=== PATIENT | male | born 1970 | race Caucasian/White ===

== ENCOUNTER 2019-12-18 07:33 | Emergency (ER) | payer SELFPAY ==
--- NOTE | 2019-12-18 08:07 | EDM.PDOC ---
ED HPI GENERAL MEDICAL PROBLEM - General Chief Complaint: Skin Complaint Stated Complaint: RASH Time Seen by Provider: 12/18/19 07:42 - History of Present Illness INITIAL COMMENTS - FREE TEXT/NARRATIVE: History of present illness: [Presents with a rash the rash is itchy it began on the trunk and spread to the extremities been going on for 2 weeks he took a course of prednisone this helped and almost completely limited the rash but then when it was over it reoccurred. He had done a primary care visit via telehealth for that prescription. Patient has attempted to change his laundry soap and avoid certain things but he is not sure what is causing the rash. No insect bites no fever no chills it is itchy and seems to be affiliated with some of the clothing he is wearing. 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 Call problems no allergies taking any other medications except those steroids and gabapentin prescribed by the telehealth doctor.] Review of systems: As per history of present illness and below otherwise all systems reviewed and negative. Past medical history: As per history of present illness and as reviewed below otherwise noncontributory. Surgical history: As per history of present illness and as reviewed below otherwise noncontributory. Social history: No reported history of drug or alcohol abuse. Family history: As per history of present illness and as reviewed below otherwise noncontributory. Physical exam: HEENT: Atraumatic, normocephalic, pupils reactive, negative for conjunctival pallor or scleral icterus, mucous membranes moist, throat clear, neck supple, nontender, trachea midline. Lungs: Clear to auscultation, breath sounds equal bilaterally, chest nontender. Heart: S1S2, regular, negative for clicks, rubs, or JVD. Abdomen: Soft, nondistended, nontender. Negative for masses or hepatosplenomegaly. Negative for costovertebral tenderness. Pelvis: Stable nontender. Genitourinary: Deferred. Rectal: Deferred. Extremities: Atraumatic, negative for cords or calf pain. Neurovascular unremarkable. Neuro: Awake, alert, oriented. Cranial nerves II through XII unremarkable. Cerebellum unremarkable. Motor and sensory unremarkable throughout. Exam nonfocal. Skin: There is a patchy maculopapular rash with excoriations on the extremities that is most confluent on the trunk and upper extremities no signs of infection it is blanchable it appears to be a contact dermatitis there is no evidence of scabies or petechia Diagnostics: [] Therapeutics: [] Impression: Contact dermatitis Plan: I will place the patient on a steroid taper and write him Vistaril for itching he is encouraged to follow-up with dermatology and primary care when he gets home [] Definitive disposition and diagnosis as appropriate pending reevaluation and review of above. rash Pain Score (Numeric/FACES): 3 - Related Data Allergies Allergy/AdvReac Type Severity Reaction Status Date / Time No Known Allergies Allergy Verified 12/18/19 07:46 Home Meds: Home Meds hydrOXYzine pamoate [Vistaril] 50 mg PO Q6H 10 Days #30 cap 12/18/19 [Rx] predniSONE [Prednisone] 10 mg PO DAILY 8 Days #26 tablet 12/18/19 [Rx] Past Medical History - Past Health History Medical/Surgical History: Denies Medical/Surgical History - Infectious Disease History Infectious Disease History: Reports: Chicken Pox, Mumps Social & Family History - Family History Family Medical History: Noncontributory - Tobacco Use Smoking Status *Q: Current Every Day Smoker Years of Tobacco use: 30 Packs/Tins Daily: 0.5 - Recreational Drug Use Recreational Drug Use: No ED ROS GENERAL - Review of Systems Review Of Systems: See Below ED EXAM, SKIN/RASH Exam: See Below Course - Vital Signs Last Recorded V/S: Last Vital Signs Temp 36.4 C 12/18/19 07:46 Pulse 78 12/18/19 07:46 Resp 18 12/18/19 07:46 BP 140/71 12/18/19 07:46 Pulse Ox 97 12/18/19 07:46 Departure - Departure Time of Disposition: 08:01 Disposition: Home, Self-Care 01 Condition: Good Clinical Impression: Contact dermatitis Qualifiers: Contact dermatitis type: unspecified - Discharge Information *PRESCRIPTION DRUG MONITORING PROGRAM REVIEWED*: Not Applicable *COPY OF PRESCRIPTION DRUG MONITORING REPORT IN PATIENT THERESA: Not Applicable Instructions: Rash, Adult Referrals: PCP,None [Primary Care Provider] - Additional Instructions: [place] [facility] - Primary Care [address] [place] [address] [id number] [address] [id number] The following information is given to patients seen in the emergency department who are being discharged to home. This information is to outline your options for follow-up care. We provide all patients seen in our emergency department with a follow-up referral. The need for follow-up, as well as the timing and circumstances, are variable depending upon the specifics of your emergency department visit. If you don't have a primary care physician on staff, we will provide you with a referral. We always advise you to contact your personal physician following an emergency department visit to inform them of the circumstance of the visit and for follow-up with them and/or the need for any referrals to a consulting specialist. The emergency department will also refer you to a specialist when appropriate. This referral assures that you have the opportunity for follow-up care with a specialist. All of these measure are taken in an effort to provide you with optimal care, which includes your follow-up. Under all circumstances we always encourage you to contact your private physician who remains a resource for coordinating your care. When calling for follow-up care, please make the office aware that this follow-up is from your recent emergency room visit. If for any reason you are refused follow-up, please contact the [facility] Emergency Department at and asked to speak to the emergency department charge nurse. Sepsis Event Note - Evaluation Sepsis Screening Result: No Definite Risk - Focused Exam Vital Signs: Vital Signs Temp Pulse Resp BP Pulse Ox 12/18/19 07:46 36.4 C 78 18 140/71 97 Date Exam was Performed: 12/18/19 Time Exam was Performed: 07:58
== END 2019-12-18 08:19 | disposition home or self-care (01) ==
LOC: MW.ED 07:33
DX: L25.9 Unspecified contact dermatitis, unspecified cause (principal); F17.210 Nicotine dependence, cigarettes, uncomplicated
CPT/HCPCS: 99282